=== PATIENT | female | born 1995 | race Two or more races ===

== ENCOUNTER 2021-09-29 07:30 | Observation (INO) | payer OTHER ==
[~2021-09-29] VITALS: Ht 154.9 cm; Wt 69.9 kg
[2021-09-29] MEDS ORDERED: DEXT 5%/LACTATED RINGERS 1,000 ML IV SCH (08:00)
[2021-09-29 09:06] LABS: BASOPHILS % 0.2 % (0.0-2.0); EOSINOPHILS % 0.7 % (0.0-5.0); HEMATOCRIT. 35.7 % (36.0-48.0); LYMPHOCYTES % 16.5 % (20.0-50.0); MEAN CORPUSCULAR HEMOGLOBIN 29.5 pg (28.0-32.0); MEAN CORPUSCULAR VOLUME 87.5 fL (81.0-99.0); MEAN PLATELET VOLUME 8.6 fl (7.4-10.4); MONOCYTES % 6.6 % (2.0-8.0); PLATELET 293 x1000/uL (130-400); RED BLOOD CELL COUNT 4.08 mill/uL (4.2-5.4)
[2021-09-29 09:12] LABS: CLARITY URINE CLEAR (CLEAR); COLOR URINE YELLOW (YELLOW); KETONES URINE TRACE (NEGATIVE); LEUKOCYTE ESTERASE URINE NEGATIVE (NEGATIVE); NITRITE URINE NEGATIVE (NEGATIVE); OCCULT BLOOD URINE NEGATIVE (NEGATIVE); PROTEIN URINE TRACE (NEGATIVE); SPECIFIC GRAVITY URINE 1.025 (1.005-1.030); UROBILINOGEN URINE 0.2 E.U./dL (0.2-1.0)
[2021-09-29] MEDS ORDERED: ACETAMINOPHEN 325MG TABLET PO NR (13:15)
== END 2021-09-29 13:50 | disposition home or self-care (01) ==
LOC: 8 EST LDRP 07:30 → 8 EST A/PP 07:39
PROVIDERS: ADMIT Obstetrics & Gynecology; ATTEND Obstetrics & Gynecology
DX: O26.892 Other specified pregnancy related conditions, second trimester (principal); R10.9 Unspecified abdominal pain; Z3A.21 21 weeks gestation of pregnancy
CPT/HCPCS: 36415; 59025; 76700; 76805; 81003; 85025; G0378; 96360; 96361; 99281; J7121